=== PATIENT | male | born 1955 | race Caucasian/White ===

== ENCOUNTER 2018-08-15 15:16 | Observation (INO) ==
--- NOTE | 2018-08-15 16:55 | ED ---
HPI General Chief Complaint: Respiratory Symptoms Stated Complaint: sent by doctor Time Seen by Provider: 08/15/18 16:37 Source: patient and RN notes reviewed Mode of arrival: ambulatory Limitations: no limitations History of Present Illness 63-year-old male presents to the emergency department for evaluation of worsening shortness of breath. Patient states he has had shortness of breath for months, but has been progressively worsening. He reports lower extremity edema for 1 week. Patient states he went to [facility] in [facility] on Saturday and had an EKG and chest x-ray done. They did no lab work. He was sent home with prednisone and azithromycin. Patient reports no improvement with medications. He does report history of COPD and is a heavy smoker, 2 packs /day. Patient denies any chest pain. No fevers or chills. Moderate severity. MD Complaint: Reports shortness of breath and cough Onset (ago): month(s) (1) Severity: moderate Consistency/Duration: constant Relieving factors: nothing Exacerbating factors: exertion Known history of: Reports COPD Associated symptoms: Reports cough and wheezing; Denies chest pain, pain with inspiration, fever, lower extremity pain, palpitations, hemoptysis, diaphoresis , nausea/vomiting, syncope, abdominal pain, rash, dizziness and lightheadedness Treatment prior to arrival: Reports bronchodilator Related Data Home Medications Medication Instructions Recorded Confirmed azithromycin 250 mg PO DAILY 08/15/18 08/15/18 budesonide-formoterol [Symbicort] 2 puff INHALATION Q12H 08/15/18 08/15/18 fluoxetine 20 mg PO DAILY 08/15/18 08/15/18 ipratropium-albuterol [Combivent 1 puff INHALATION QID 08/15/18 08/15/18 Respimat] lisinopril 20 mg PO DAILY 08/15/18 08/15/18 meloxicam 7.5 mg PO DAILY 08/15/18 08/15/18 nystatin 1 applic TOPICAL TID 08/15/18 08/15/18 prednisone 50 mg PO BID 08/15/18 08/15/18 Allergies Allergy/AdvReac Type Severity Reaction Status Date / Time acetaminophen Allergy Nasal Verified 08/15/18 16:48 Discharge Sulfa (Sulfonamide Allergy Swelling Verified 08/15/18 16:48 Antibiotics) Review of Systems ROS: all other systems reviewed are negative PMFSH Medical History Medical History Hypertension (Acute) CHF (congestive heart failure) (Acute) COPD (chronic obstructive pulmonary disease) (Acute) Surgical History Surgical History Hx of knee surgery (Acute) Social History Social History Substance History: No History of Abuse Second Hand Smoke Exposure: No Smoking Status: Former smoker Tobacco Type: Cigarettes How Often Do You Have a Drink Containing Alcohol: 4 or more times a week Recent Travel in [facility] within the Last 8 Weeks: No Recent Out of Country Travel within the Last 8 Weeks: No Substance Abuse Detail Marijuana: Substance Use Status: Active Route Used Substance Abuse: By Mouth Immunization History Tetanus Immunization: >5 Years Exam Narrative Exam Narrative: GENERAL: Well-nourished, well-developed male patient, ambulatory. Afebrile. SKIN: Focused skin assessment warm/dry. HEAD: Normocephalic. Atraumatic. EYES: No scleral icterus. No injection or drainage. NECK: Supple, trachea midline. No JVD or lymphadenopathy. CARDIOVASCULAR: Regular rate and rhythm without murmurs, gallops, or rubs. RESPIRATORY: Breath sounds equal bilaterally. No accessory muscle use. Lung sounds with expiratory wheezes throughout. GASTROINTESTINAL: Abdomen soft, non-tender, nondistended. MUSCULOSKELETAL: No cyanosis. Bilateral 2+ lower extremity edema. BACK: Nontender without obvious deformity. No CVA tenderness. Course Initial Documented Vital Signs Temperature 98.7 F 08/15/18 15:28 Pulse Rate 56 L 08/15/18 15:28 Respiratory Rate 20 08/15/18 15:28 Blood Pressure 168/88 H 08/15/18 15:28 Pulse Oximetry 98 08/15/18 15:28 Last Documented Vital Signs Temperature 98.0 F 08/15/18 20:00 Pulse Rate 100 H 08/15/18 20:30 Respiratory Rate 18 08/15/18 20:30 Blood Pressure 147/85 H 08/15/18 20:00 Pulse Oximetry 96 08/15/18 20:00 Medical Decision Making MDM Narrative Medical decision making narrative: 63-year-old male presents to the emergency department for evaluation of shortness of breath, wheezing, known COPD. He reports bilateral lower extremity edema. IV access obtained. EKG, CBC, CMP, CK , troponin, magnesium, BNP, PTT, PT/INR, d-dimer, chest x-ray ordered and pending. Patient has been on azithromycin, prednisone 50 mg daily since Saturday. Patient is given DuoNeb x3. EKG shows bigeminy, HR 105. CBC shows no acute abnormality. CMP shows hyponatremia 129, hyperkalemia 5.3, BUN 21, creatinine 1.45, hyperglycemia 160. CK is 378. Troponin is 0.05. Magnesium is 1.8. BNP is 1387. PTT is 25.7. PT/INR is 11.8/1.2. D-dimer is 0.81. Chest x-ray is negative. CT pulmonary antrum is ordered and shows no pulmonary embolus, moderate severe emphysema, nonspecific upper limits of normal to mildly enlarged mediastinal lymph nodes, coronary artery calcification. Patient is given Lasix 40 mg IV. Hospitalist paged for admission for new onset CHF, COPD exacerbation. Medical Screen Exam Complete: Yes Emergency Medical Condition: Yes Medical Records Medical records reviewed: Yes I reviewed the patient's medical records. Lab Data Result diagrams: 08/15/18 16:57 08/15/18 16:57 Lab Results 08/15/18 08/15/18 08/15/18 Range/Units 16:57 16:57 16:57 WBC 9.0 (4.0-11.0) th/mm3 RBC 3.94 L (4.50-5.90) mil/mm3 Hgb 15.5 (13.0-17.0) gm/dL Hct 43.6 (39.0-51.0) % MCV 110.8 H (80.0-100.0) fL MCH 39.4 H (27.0-34.0) pg MCHC 35.6 (32.0-36.0) % RDW 14.3 (11.6-17.2) % Plt Count 162 (150-450) th/mm3 MPV 9.9 (7.0-11.0) fL Neut % (Auto) 90.5 H (16.0-70.0) % Lymph % (Auto) 5.2 L (9.0-44.0) % [place] % (Auto) 4.2 (0.0-8.0) % Eos % (Auto) 0.0 (0.0-4.0) % Baso % (Auto) 0.1 (0.0-2.0) % Neut # (Auto) 8.2 H (1.8-7.7) th/mm3 Lymph # (Auto) 0.5 L (1.0-4.8) th/mm3 [place] # (Auto) 0.4 (0.0-0.9) th/mm3 Eos # (Auto) 0.0 (0.0-0.4) th/mm3 Baso # (Auto) 0.0 (0.0-0.2) th/mm3 WBC Differential . Differential Comment Auto diff final PT 11.8 H (9.8-11.6) sec INR 1.2 Ratio APTT 25.7 (23.4-31.7) sec D-Dimer Quant (PE/DVT) 0.81 H (0.00-0.50) mg/L FEU Sodium 129 L (136-145) meq/L Potassium 5.3 H (3.5-5.1) meq/L Chloride 94 L (98-107) meq/L Carbon Dioxide 24.7 (21.0-32.0) meq/L Anion Gap 10 (5-15) meq/L BUN 21 H (7-18) mg/dL Creatinine 1.45 H (0.60-1.30) mg/dL Estimated GFR 49 L (>89) mL/min Random Glucose 160 H (74-106) mg/dL Calcium 8.1 L (8.5-10.1) mg/dL Magnesium (1.5-2.5) mg/dL Total Bilirubin 0.5 (0.2-1.0) mg/dL AST 54 H (15-37) U/L ALT 61 (12-78) U/L Alkaline Phosphatase 71 (45-117) U/L Total Creatine Kinase 378 H (39-308) U/L CK-MB (CK-2) 14.0 H (0.5-3.6) ng/mL CK-MB (CK-2) % 3.7 (0.0-4.0) % Troponin I 0.05 (0.02-0.05) ng/mL B-Natriuretic Peptide (0-100) pg/mL Total Protein 7.2 (6.4-8.2) g/dL Albumin 3.7 (3.4-5.0) g/dL 08/15/18 08/15/18 08/15/18 Range/Units 16:57 16:57 16:57 WBC (4.0-11.0) th/mm3 RBC (4.50-5.90) mil/mm3 Hgb (13.0-17.0) gm/dL Hct (39.0-51.0) % MCV (80.0-100.0) fL MCH (27.0-34.0) pg MCHC (32.0-36.0) % RDW (11.6-17.2) % Plt Count (150-450) th/mm3 MPV (7.0-11.0) fL Neut % (Auto) (16.0-70.0) % Lymph % (Auto) (9.0-44.0) % [place] % (Auto) (0.0-8.0) % Eos % (Auto) (0.0-4.0) % Baso % (Auto) (0.0-2.0) % Neut # (Auto) (1.8-7.7) th/mm3 Lymph # (Auto) (1.0-4.8) th/mm3 [place] # (Auto) (0.0-0.9) th/mm3 Eos # (Auto) (0.0-0.4) th/mm3 Baso # (Auto) (0.0-0.2) th/mm3 WBC Differential Differential Comment PT Cancelled (9.8-11.6) sec INR Cancelled Ratio APTT Cancelled (23.4-31.7) sec D-Dimer Quant (PE/DVT) (0.00-0.50) mg/L FEU Sodium (136-145) meq/L Potassium (3.5-5.1) meq/L Chloride (98-107) meq/L Carbon Dioxide (21.0-32.0) meq/L Anion Gap (5-15) meq/L BUN (7-18) mg/dL Creatinine (0.60-1.30) mg/dL Estimated GFR (>89) mL/min Random Glucose (74-106) mg/dL Calcium (8.5-10.1) mg/dL Magnesium 1.8 (1.5-2.5) mg/dL Total Bilirubin (0.2-1.0) mg/dL AST (15-37) U/L ALT (12-78) U/L Alkaline Phosphatase (45-117) U/L Total Creatine Kinase (39-308) U/L CK-MB (CK-2) (0.5-3.6) ng/mL CK-MB (CK-2) % (0.0-4.0) % Troponin I (0.02-0.05) ng/mL B-Natriuretic Peptide 1387 H (0-100) pg/mL Total Protein (6.4-8.2) g/dL Albumin (3.4-5.0) g/dL Imaging Data Radiologist's impression: Chest X-Ray 08/15/18 16:50 CONCLUSION: Negative examination. Chest CTA 08/15/18 17:29 CONCLUSION: 1. No pulmonary embolus or other acute cardiopulmonary disease demonstrated. 2. Moderate severity emphysema. 3. Nonspecific upper limits of normal to mildly enlarged mediastinal lymph nodes. 4. Coronary artery calcification. Discharge Plan Discharge Disposition Patient Disposition: ED Admit(ED Internal Use Only) Discharge Order Discharge Orders: ED Use Only Admit Order (Routine); Ordered 08/15/18 Ordered By: Merle Garsia Discharge Details Diagnosis: CHF (congestive heart failure), COPD (chronic obstructive pulmonary disease) Physicians Team ED Provider: Jennifer Hoover ED Midlevel Provider: Merle Garsia Primary Care Provider: UNKNOWN, Attending Provider: Lamar Suresh Discharge Interventions Interventions: ED Discharge Assessment Last Done: 08/15/18 20:45 Vital Signs Last Done: 08/15/18 19:18 Status ED Status: Admitted Observation Patient
[2018-08-15 17:13] LABS: Baso % (Auto) 0.1 % (0.0-2.0); Hematocrit 43.6 % (39.0-51.0); Hemoglobin 15.5 gm/dL (13.0-17.0); Lymph # (Auto) 0.5 th/mm3 (1.0-4.8); Lymph % (Auto) 5.2 % (9.0-44.0); Mean Corpuscular HGB Conc 35.6 % (32.0-36.0); Mean Corpuscular Hemoglobin 39.4 pg (27.0-34.0); Mean Corpuscular Volume 110.8 fL (80.0-100.0); Mean Platelet Volume 9.9 fL (7.0-11.0); Mono # (Auto) 0.4 th/mm3 (0.0-0.9); Mono % (Auto) 4.2 % (0.0-8.0); Neut # (Auto) 8.2 th/mm3 (1.8-7.7); Neut % (Auto) 90.5 % (16.0-70.0); Platelet Count 162 th/mm3 (150-450); Red Blood Count 3.94 mil/mm3 (4.50-5.90); Red Cell Distribution Width 14.3 % (11.6-17.2)
[2018-08-15 17:24] LABS: Activated Partial Thrombo Time 25.7 sec (23.4-31.7); INR 1.2 Ratio; Prothrombin Time 11.8 sec (9.8-11.6)
[2018-08-15 17:25] LABS: D-Dimer 0.81 mg/L FEU (0.00-0.50)
[2018-08-15 17:38] LABS: Alanine Aminotransferase 61 U/L (12-78); Albumin 3.7 g/dL (3.4-5.0); Anion Gap 10 meq/L (5-15); Aspartate Aminotransferase 54 U/L (15-37); Blood Urea Nitrogen 21 mg/dL (7-18); Calcium 8.1 mg/dL (8.5-10.1); Carbon Dioxide 24.7 meq/L (21.0-32.0); Chloride 94 meq/L (98-107); Glomerular Filtration Rate 49 mL/min (>89); Glucose,Random 160 mg/dL (74-106); Potassium 5.3 meq/L (3.5-5.1); Sodium 129 meq/L (136-145)
[2018-08-15 17:39] LABS: Alkaline Phosphatase 71 U/L (45-117); Creatine Kinase 378 U/L (39-308); Total Protein 7.2 g/dL (6.4-8.2); Troponin I 0.05 ng/mL (0.02-0.05)
--- NOTE | 2018-08-15 17:44 | XR ---
EXAM DATE: 08/15/2018 5:41 PM EST AGE/SEX: 63 years / Male INDICATIONS: Chest pain and short of breath. CLINICAL DATA: This is the patient's initial encounter. Patient reports that signs and symptoms have been present for 1 month and indicates a pain score of 4/10. MEDICAL/SURGICAL HISTORY: Chronic obstructive pulmonary disease. Hypertension. . COMPARISON: No prior exams available for comparison. FINDINGS: A single AP view of the chest demonstrates the lungs to be symmetrically aerated without evidence of mass, infiltrate or effusion. The cardiomediastinal contours are unremarkable. Osseous structures a re intact. CONCLUSION: Negative examination. Electronically signed by: Yony Leslie MD 08/15/2018 5:43 PM EST
[2018-08-15 17:52] LABS: CKMB Percent 3.7 % (0.0-4.0)
--- NOTE | 2018-08-15 18:45 | CT ---
EXAM DATE: 08/15/2018 6:32 PM EST AGE/SEX: 63 years / Male INDICATIONS: Shortness of breath for one month, lower leg swelling. CLINICAL DATA: This is the patient's initial encounter. Patient reports that signs and symptoms have been present for 1 month and indicates a pain score of 0/10. MEDICAL/SURGICAL HISTORY: Congestive heart failure. Chronic obstructive pulmonary disease. Hypert ension. None. RADIATION DOSE: 20.06 CTDI (mGy) COMPARISON: No prior exams available for comparison. TECHNIQUE: Volumetric scanning was performed using a multi-row detector CT scanner during bolus infu armida of 73 ml Omnipaque 350 (iohexol) nonionic water-soluble contrast as a single exam dose. The jonathan a was post processed with a variety of visualization algorithms including full volume maximum intensi ty projection and sliding thin slab reformation. Using automated exposure control and adjustment of the mA and/or kV according to patient size, radiation dose was kept as low as reasonably achievable t o obtain optimal diagnostic quality images. DICOM format image data is available electronically for review and comparison. FINDINGS: There is no pulmonary embolus. No infiltrate, effusion or pneumothorax. Patient has moderate severity emphysema. There are AP window and paratracheal mediastinal lymph nodes that measure up to 14 mm in greatest kristofer rt axis dimension. Heart size within normal limits. Coronary artery calcification noted. CONCLUSION: 1. No pulmonary embolus or other acute cardiopulmonary disease demonstrated. 2. Moderate severity emphysema. 3. Nonspecific upper limits of normal to mildly enlarged mediastinal lymph nodes. 4. Coronary artery calcification. Electronically signed by: Michael Vance MD 08/15/2018 6:44 PM EST
[2018-08-15] MEDS ORDERED: Bisacodyl 10 MG Supp RECTAL PRN (19:34)
[2018-08-15] MEDS ORDERED: Haloperidol Inj 5 MG/ML Ampul IV.PUSH PRN (19:35)
[2018-08-15] MEDS: MethylPREDNISolone Sod Succinate Inj 40 MG/ML Vial IV.PUSH SCH (20:40)
[2018-08-15] MEDS: Senna/Docusate Sodium 8.6/50 MG Tablet PO SCH (21:17)
[2018-08-15] MEDS: guaiFENesin 600 MG ER Tablet PO SCH (21:17)
--- NOTE | 2018-08-15 21:18 | P.HPIM ---
History of Present Illness Primary Care Physician: UNKNOWN History of Present Illness: This is a 63-year-old male with a PMH of HTN, COPD, Alcohol Abuse and Tobacco Abuse who was referred to the ER by his PCP for evaluation of ongoing SOB and lower extremity edema. Pt reports SOB x1 month, however progressively worse over the last 2-3 days, now w/ exertion, unable to perform minimal activity. Denies chest pain, fever or chills. Seen at [place] 2 days ago and was d/ c'd on Prednisone/Z-pack, reports no improvement. Has been using MDI, now c/o thrush for which he's on Nystatin. On arrival, BP 168/88, HR 56, O2 sat 98% on RA, Afebrile. CBC unremarkable except for MCV 110. INR 1.2. D-dimer 0.81. K + 5.3. Creatinine 1.45, no previous labs for comparison. CPK 378. BNP 1387. CXR negative. CTA Chest negative for PE, moderate severity emphysema, coronary artery calcification, mildly enlarged mediastinal lymph nodes. S/p Lasix 40mg IV and DuoNeb w/ some improvement. - Diagnosis (1) COPD (chronic obstructive pulmonary disease) (2) CHF (congestive heart failure) (3) CHUY (acute kidney injury) (4) Alcohol abuse (5) Tobacco abuse Review of Systems PAST FAMILY HISTORY: Reviewed. No h/o DM or CAD All other systems reviewed negative except as stated in HPI REPLACED BY [facility] - History History Provided By: Patient - Medical History Medical History: Medical History (Last Updated 08/15/18 @ 16:46 by Tania Leahy RN) Hypertension CHF (congestive heart failure) COPD (chronic obstructive pulmonary disease) - Surgical History Surgical History: Surgical History (Last Updated 08/15/18 @ 16:49 by Tania Leahy RN) Hx of knee surgery - Tobacco History Second Hand Smoke Exposure: No Tobacco Use In Past 30 Days: No Smoking Status: Former smoker Tobacco Type: Cigarettes - Alcohol History How Often Do You Have a Drink Containing Alcohol: 4 or more times a week - Substance Use History Substance History: No History of Abuse - Substance Use Type Marijuana Status: Active Route Used: By Mouth - Travel History Recent Travel in the [place] Within the Last 8 Weeks: No Recent Travel Out of the Country Within the Last 8 Weeks: No - Immunization History Tetanus Immunization: >5 Years Hx Influenza Vaccine This Season: No Medications and Allergies Active Medications: Active Medications Al Hydroxide/Mg Hydroxide (Milk Of Magnesia Liq) 30 ml PO Q12H PRN PRN Reason: Mild Constipation Albuterol (Duoneb Neb (Prn)) 1 ampul NEB Q2HR NEB PRN PRN Reason: SOB/WHEEZING Albuterol (Duoneb Neb (Sachin)) 1 ampul NEB Q4HR WHILE AWAKE NEB [facility] Last Admin: 08/15/18 20:30 Dose: 1 ampul Bisacodyl (Dulcolax Supp) 10 mg RECTAL DAILY PRN PRN Reason: SEVERE CONSITIPATION Budesonide/Formoterol Fumarate (Symbicort 160/4.5 Mcg Inh) 2 puff INH BID [facility] Flumazenil (Romazecon Inj) 0.2 mg IV.PUSH Q1M PRN PRN Reason: OVERSEDATION Folic Acid (Folic Acid) 1 mg PO DAILY [facility] Stop: 08/21/18 08:59 Furosemide (Lasix Inj) 20 mg IV.PUSH BID@0900,1800 [facility] Guaifenesin (Mucinex Er) 600 mg PO BID [facility] Last Admin: 08/15/18 21:17 Dose: 600 mg Haloperidol Lactate (Haldol Inj) 1 mg IV.PUSH Q15M PRN PRN Reason: for severe agitation Heparin Sodium (Porcine) (Heparin Inj) 5,000 units SQ Q12H [facility] Lactulose (Lactulose Liq) 30 ml PO DAILY PRN PRN Reason: SEVERE CONSITIPATION Lorazepam (Ativan) 1 mg PO Q4H PRN PRN Reason: for CIWA 8-10 Lorazepam (Ativan) 2 mg PO Q2H PRN PRN Reason: for CIWA 11-14 Lorazepam (Ativan Inj) 2 mg IV.PUSH Q2H PRN PRN Reason: for CIWA 11-14 Lorazepam (Ativan Inj) 2 mg IV.PUSH Q1H PRN PRN Reason: for CIWA 15-20 Lorazepam (Ativan Inj) 2 mg IV.PUSH Q15M PRN PRN Reason: for CIWA > 20 Lorazepam (Ativan Inj) 1 mg IV.PUSH Q4H PRN PRN Reason: for CIWA 8-10 Methylprednisolone Sodium Succinate (Solumedrol Inj) 40 mg IV.PUSH Q6H [facility] Last Admin: 08/15/18 20:40 Dose: 40 mg Multivitamins/Minerals (Theragran-M) 1 tab PO DAILY [facility] Stop: 08/21/18 08:59 Nicotine (Habitrol 21 Mg Patch.24 Hr) 1 patch T-DERMAL DAILY [facility] Last Admin: 08/15/18 21:17 Dose: 1 patch Ondansetron HCl (Zofran Inj) 4 mg IV.PUSH Q6H PRN PRN Reason: NAUSEA OR VOMITING Patch Removal (Remove Old Patch) 1 each T-DERMAL DAILY [facility] Last Admin: 08/15/18 21:17 Dose: 1 each Senna/Docusate Sodium (Kelly-Colace) 1 tab PO BID [facility] Last Admin: 08/15/18 21:17 Dose: Not Given Sennosides (Senokot) 17.2 mg PO Q12H PRN PRN Reason: Moderate Constipation Sodium Chloride (Ns Flush) 2 ml IV.FLUSH BID [facility] Last Admin: 08/15/18 21:17 Dose: 2 ml Sodium Chloride (Ns Flush) 2 ml IV.FLUSH UNSCH PRN PRN Reason: FLUSH AFTER USING IV ACCESS Thiamine HCl (Vitamin B1) 100 mg PO DAILY [facility] Allergies Allergy/AdvReac Type Severity Reaction Status Date / Time acetaminophen Allergy Nasal Verified 08/15/18 16:48 Discharge Sulfa (Sulfonamide Allergy Swelling Verified 08/15/18 16:48 Antibiotics) Home Medications Medication Instructions Recorded Confirmed Type azithromycin 250 mg PO DAILY 08/15/18 08/15/18 History budesonide-formoterol [Symbicort] 2 puff INHALATION Q12H 08/15/18 08/15/18 History fluoxetine 20 mg PO DAILY 08/15/18 08/15/18 History ipratropium-albuterol [Combivent 1 puff INHALATION QID 08/15/18 08/15/18 History Respimat] lisinopril 20 mg PO DAILY 08/15/18 08/15/18 History meloxicam 7.5 mg PO DAILY 08/15/18 08/15/18 History nystatin 1 applic TOPICAL TID 08/15/18 08/15/18 History prednisone 50 mg PO BID 08/15/18 08/15/18 History Exam Vital signs: Vital Signs 08/15/18 15:28 12/07/18 16:52 08/15/18 16:53 Temperature 98.7 F Pulse Rate 56 L 95 H Respiratory Rate 20 18 Blood Pressure 168/88 H 154/81 H Pulse Oximetry 98 97 97 08/15/18 17:09 08/15/18 17:22 08/15/18 19:18 Temperature Pulse Rate 105 H 105 H 100 H Respiratory Rate 18 18 Blood Pressure 146/76 H Pulse Oximetry 98 08/15/18 20:00 08/15/18 20:30 Temperature 98.0 F Pulse Rate 98 H 100 H Respiratory Rate 20 18 Blood Pressure 147/85 H Pulse Oximetry 96 Intake & Output 08/15/18 08/15/18 08/16/18 06:59 18:59 06:59 Weight 92.533 kg Narrative: PE: GENERAL: Pleasant middle-aged white male mildly anxious, +dyspnea w/ speech. Multiple family members at bedside. SKIN: Focused skin assessment warm and dry. Facial erythema HEENT: PERRLA, EOMI. No scleral icterus or conjunctival pallor. No lid lag or facial droop. +thrush. CARDIOVASCULAR: Regular rate and rhythm. No obvious murmurs to auscultation. No chest tenderness to palpation. RESPIRATORY: No obvious rhonchi. +wheezing. Clear to auscultation. Breath sounds equal bilaterally. GASTROINTESTINAL: Abdomen soft, non-tender, nondistended. BS normal. MUSCULOSKELETAL: Extremities without clubbing, cyanosis. 2+ edema. No obvious deformities. NEUROLOGICAL: Awake, alert and oriented x4. No focal neurologic deficits. Moving both upper and lower extremities spontaneously. PSYCHIATRIC: Appropriate mood and affect. Insight and judgment normal. Results - Labs CBC & Chem 7: 08/15/18 16:57 08/15/18 16:57 Labs: Short CBC 08/15/18 Range/Units 16:57 WBC 9.0 (4.0-11.0) th/mm3 Hgb 15.5 (13.0-17.0) gm/dL Hct 43.6 (39.0-51.0) % Plt Count 162 (150-450) th/mm3 [facility] 08/15/18 16:57 Sodium 129 L Potassium 5.3 H Chloride 94 L Carbon Dioxide 24.7 BUN 21 H Creatinine 1.45 H Calcium 8.1 L Cardiac Enzymes 08/15/18 Range/Units 16:57 Total Creatine Kinase 378 H (39-308) U/L CK-MB (CK-2) 14.0 H (0.5-3.6) ng/mL Troponin I 0.05 (0.02-0.05) ng/mL Liver Function 08/15/18 Range/Units 16:57 Total Bilirubin 0.5 (0.2-1.0) mg/dL AST 54 H (15-37) U/L ALT 61 (12-78) U/L Alkaline Phosphatase 71 (45-117) U/L Albumin 3.7 (3.4-5.0) g/dL - Imaging Impressions Chest X-Ray 08/15/18 16:50 CONCLUSION: Negative examination. Chest CTA 08/15/18 17:29 CONCLUSION: 1. No pulmonary embolus or other acute cardiopulmonary disease demonstrated. 2. Moderate severity emphysema. 3. Nonspecific upper limits of normal to mildly enlarged mediastinal lymph nodes. 4. Coronary artery calcification. Caprini VTE Risk Assessment Caprini VTE Risk Assessment: No/Low Risk (score <= 1) Caprini Risk Assessment Model: Point Value = 1 Point Value = 2 Point Value = 3 Point Value = 5 Age 41-60 Minor surgery BMI > 25 kg/m2 Swollen legs Varicose veins or History of unexplained or recurrent spontaneous Oral contraceptives or hormone replacement Sepsis (< 1 month) Serious lung disease, including pneumonia (< 1 month) Abnormal pulmonary function Acute myocardial infarction Congestive heart failure (< 1 month) History of inflammatory bowel disease Medical patient at bed rest Age 61-74 Arthroscopic surgery Major open surgery (> 45 min) Laparoscopic surgery (> 45 min) Malignancy Confined to bed (> 72 hours) Immobilizing plaster cast Central venous access Age >= 75 History of VTE Family history of VTE Factor V Leiden Prothrombin [id number] Lupus anticoagulant Anticardiolipin antibodies Elevated serum homocysteine Heparin-induced thrombocytopenia Other congenital or acquired thrombophilia Stroke (< 1 month) Elective arthroplasty Hip, pelvis, or leg fracture Acute spinal cord injury (< 1 month) Prophylaxis Regimen: Total Risk Factor Score Risk Level Prophylaxis Regimen 0-1 Low Early ambulation 2 Moderate Order ONE of the following: *Sequential Compression Device (SCD) *Heparin 5000 units SQ BID 3-4 Higher Order ONE of the following medications: *Heparin 5000 units SQ TID *Enoxaparin/Lovenox 40 mg SQ daily (WT < 150 kg, CrCl > 30 mL/min) *Enoxaparin/Lovenox 30 mg SQ daily (WT < 150 kg, CrCl > 10-29 mL/min) *Enoxaparin/Lovenox 30 mg SQ BID (WT < 150 kg, CrCl > 30 mL/min) AND/OR *Sequential Compression Device (SCD) 5 or more Highest Order ONE of the following medications: *Heparin 5000 units SQ TID (Preferred with Epidurals) *Enoxaparin/Lovenox 40 mg SQ daily (WT < 150 kg, CrCl > 30 mL/min) *Enoxaparin/Lovenox 30 mg SQ daily (WT < 150 kg, CrCl > 10-29 mL/min) *Enoxaparin/Lovenox 30 mg SQ BID (WT < 150 kg, CrCl > 30 mL/min) AND *Sequential Compression Device (SCD) Assessment and Plan - Assessment (1) COPD (chronic obstructive pulmonary disease) Code(s): J44.9 - Chronic obstructive pulmonary disease, unspecified Status: Acute (2) CHF (congestive heart failure) Code(s): I50.9 - Heart failure, unspecified Status: Acute (3) HCUY (acute kidney injury) Code(s): N17.9 - Acute kidney failure, unspecified Status: Acute (4) Alcohol abuse Code(s): F10.10 - Alcohol abuse, uncomplicated Status: Acute (5) Tobacco abuse Code(s): Z72.0 - Tobacco use Status: Acute - Plan A/P: 1. COPD: Chronic Respiratory Failure w/ Acute Exacerbation, +wheezing on exam , CXR w/ no acute findings, CTA Chest w/ no PE, +emphysema, Solu-Medrol, DuoNeb , Symbicort, Mucinex. Nystatin for thrush. 2. CHF: New Onset. Acute. progressive lower extremity edema, BNP 1387, CXR/ CTA w/ no effusion, +significant dyspnea w/ speech/exertion. S/p Lasix 40mg IV in ER, continue w/ diuresis-caution w/ renal function, monitor I/O, telemetry, check Echo to eval for extent of cardiomyopathy. Initial trop 0.05, +coronary calcifications seen on CTA Chest, +multiple cardiac risk factors, check serial cardiac enzymes to eval for underlying ischemia. ASA, Statin. Hold BREANNE for now in light of renal insufficiency-await Echo results. 3. CHUY: Creatinine 1.45, no previous labs for comparison, presumably new, likely due to increased respiratory losses from severe dyspnea, monitor I/O, check U/a, may need gentle hydration despite acute CHF if renal function worsens , will monitor. 4. Alcohol Abuse: drinks 6-8 beers/day, possibly more, CIWA, Seizure Precautions, MVT/Thiamine/Folate replacement. 5. Tobacco Abuse: Pt counselled. Requesting NicoDerm patch. 6. DVT Prophylaxis: Heparin sq 7. Social work for d/c planning as needed. 8. Case discussed w/ ER physician at length, labs/records/imaging reviewed by me. H&P: Quality - VTE Deep Vein Thrombosis/Pulmonary Embolism Present on Admission: No
[2018-08-15] MEDS: Budesonide-Formoterol 160/4.5 MCG 6 GM Inhaler INH SCH (21:59)
[2018-08-15] MEDS ORDERED: Influenza (Quadrivalent) Vaccine 0.5 ML Syringe IM ONE (22:00)
[2018-08-16] MEDS: MethylPREDNISolone Sod Succinate Inj 40 MG/ML Vial IV.PUSH SCH ×4 (01:03→22:16)
[2018-08-16 05:21] LABS: Baso % (Auto) 0.4 % (0.0-2.0); Hematocrit 42.7 % (39.0-51.0); Hemoglobin 14.9 gm/dL (13.0-17.0); Lymph # (Auto) 0.4 th/mm3 (1.0-4.8); Lymph % (Auto) 5.1 % (9.0-44.0); Mean Corpuscular HGB Conc 34.9 % (32.0-36.0); Mean Corpuscular Hemoglobin 38.2 pg (27.0-34.0); Mean Corpuscular Volume 109.5 fL (80.0-100.0); Mean Platelet Volume 10.2 fL (7.0-11.0); Mono # (Auto) 0.2 th/mm3 (0.0-0.9); Mono % (Auto) 3.2 % (0.0-8.0); Neut # (Auto) 7.1 th/mm3 (1.8-7.7); Neut % (Auto) 91.3 % (16.0-70.0); Platelet Count 144 th/mm3 (150-450); Red Cell Distribution Width 14.3 % (11.6-17.2); White Blood Count 7.8 th/mm3 (4.0-11.0)
[2018-08-16 05:33] LABS: Alanine Aminotransferase 56 U/L (12-78); Albumin 3.5 g/dL (3.4-5.0); Anion Gap 7 meq/L (5-15); Aspartate Aminotransferase 45 U/L (15-37); Blood Urea Nitrogen 26 mg/dL (7-18); Calcium 8.4 mg/dL (8.5-10.1); Carbon Dioxide 28.2 meq/L (21.0-32.0); Chloride 95 meq/L (98-107); Glomerular Filtration Rate 49 mL/min (>89); Glucose,Random 160 mg/dL (74-106); Potassium 4.8 meq/L (3.5-5.1); Sodium 130 meq/L (136-145)
[2018-08-16 05:36] LABS: Alkaline Phosphatase 63 U/L (45-117); Total Protein 6.6 g/dL (6.4-8.2)
[2018-08-16] MEDS: Multivitamin/Minerals Therapeutic Tablet PO SCH (09:13)
[2018-08-16] MEDS: FLUoxetine 20 MG Capsule PO SCH (09:13)
[2018-08-16] MEDS: guaiFENesin 600 MG ER Tablet PO SCH ×2 (09:13→22:17)
[2018-08-16] MEDS: Folic Acid 1 MG Tablet PO SCH (09:13)
[2018-08-16] MEDS: Heparin - SQ 10,000 UNITS/ML Vial SQ SCH ×2 (09:14→22:17)
[2018-08-16] MEDS: Budesonide-Formoterol 160/4.5 MCG 6 GM Inhaler INH SCH ×2 (09:15→22:17)
[2018-08-16] MEDS: Senna/Docusate Sodium 8.6/50 MG Tablet PO SCH ×2 (09:16→22:17)
[2018-08-16] MEDS: Lisinopril 20 MG Tablet PO SCH (09:28)
--- NOTE | 2018-08-16 15:33 | ECHRPT ---
Indication: CARDIOMYOPATHY CONCLUSIONS There are findings consistent with dilated cardiomyopathy. There is global left ventricular dysfunction. The left ventricular systolic function is severely reduced with an estimated ejection fraction less than 20%. The right ventricular systoilc function is moderately decreased. The left atrial size is uxrw-ho-eezxyicnni dilated. The right atrial size is moderately dilated. Moderate mitral annular calcification. Zaqcxbji-ab-qpbbkj mitral valve regurgitation. There is moderate to severe tricuspid valve regurgitation. The estimated pulmonary arterial pressure is 54.4 mmHg. BP: / HR: Rhythm: Sinus MEASUREMENTS (Male / Female) Normal Values Technical Quality:Technically difficult study 2D ECHO LV Diastolic Diameter PLAX 5.4 cm 4.2 - 5.9 / 3.9 - 5.3 cm LV Systolic Diameter PLAX 5.1 cm IVS Diastolic Thickness 1.0 cm 0.6 - 1.0 / 0.6 - 0.9 cm LVPW Diastolic Thickness 1.0 cm 0.6 - 1.0 / 0.6 - 0.9 cm LV Relative Wall Thickness 0.4 RV Internal Dim ED PLAX 4.2 cm LVOT Diameter 2.1 cm Aortic Root Diameter 3.0 cm LA Systolic Diameter LX 4.4 cm 3.0 - 4.0 / 2.7 - 3.8 cm LV Ejection Fraction MOD BP 20.4 % >= 55 % LV Ejection Fraction MOD 4C 23.7 % LV Ejection Fraction 4C AL 22.9 % LV Ejection Fraction MOD 2C 17.3 % LV Ejection Fraction 2C AL 16.5 % LA Volume Index 59.1 cm/m 16 - 28 cm/m M-MODE AV Cusp Separation MM 1.7 cm DOPPLER AV Peak Velocity 137.0 cm/s AV Peak Gradient 7.5 mmHg AV Mean Gradient 4.0 mmHg AV Velocity Time Integral 23.0 cm LVOT Peak Velocity 67.7 cm/s LVOT Peak Gradient 1.8 mmHg LVOT Velocity Time Integral 10.5 cm AV Area Cont Eq vti 1.6 cm AV Area Cont Eq pk 1.7 cm Mitral E Point Velocity 126.0 cm/s Mitral A Point Velocity 63.2 cm/s Mitral E to A Ratio 2.0 LV E' Lateral Velocity 9.2 cm/s Mitral E to LV E' Lateral Ratio 13.8 LV E' Septal Velocity 6.7 cm/s Mitral E to LV E' Septal Ratio 18.7 TR Peak Velocity 333.0 cm/s TR Peak Gradient 44.4 mmHg Right Atrial Pressure 10.0 mmHg Pulmonary Artery Systolic Pressu 54.4 mmHg Right Ventricular Systolic Press 54.4 mmHg PV Peak Velocity 51.9 cm/s PV Peak Gradient 1.1 mmHg FINDINGS LEFT VENTRICLE There are findings consistent with dilated cardiomyopathy. There is global left ventricular dysfunction. The left ventricular systolic function is severely reduced with an estimated ejection fraction less than 20%. RIGHT VENTRICLE The right ventricular systoilc function is moderately decreased. LEFT ATRIUM The left atrial size is vssf-qa-puomknhsfe dilated. RIGHT ATRIUM The right atrial size is moderately dilated. ATRIAL SEPTUM No atrial level shunt is demonstrated by color flow Doppler interrogation. AORTA The aortic root and proximal ascending aorta are normal in size on limited imaging. MITRAL VALVE Moderate mitral annular calcification. Jtggqhmp-fz-mnbtap mitral valve regurgitation. AORTIC VALVE Trileaflet aortic valve. No aortic valve stenosis or regurgitation. TRICUSPID VALVE There is moderate to severe tricuspid valve regurgitation. The estimated pulmonary arterial pressure is 54.4 mmHg. PULMONARY VALVE No pulmonary valve regurgitation or stenosis. VESSELS The inferior vena cava is normal in size. PERICARDIUM No pericardial effusion. Yony Rodrigez MD, FACC (Electronically Signed) Final Date:16 August 2018 15:32
--- NOTE | 2018-08-16 17:56 | P.PNIM ---
Subjective Interval history: Patient is seen sitting up in room. He tells me that he feels significantly better and that he is breathing much easier. He denies any cardiac history other than hypertension. He has never been told he has high cholesterol or heart failure. He tells me that he is currently trying to stop smoking and has cut down from 40 cigarettes/day to about 6 and plans to stop altogether. Not currently having any chest pain. He is able to walk around the unit without getting short of breath. No nausea vomiting or diarrhea. Physical Exam Vital signs: Last Vital Signs Temp 96.1 F L 08/16/18 15:20 Pulse 101 H 08/16/18 15:20 Resp 20 08/16/18 15:20 BP 129/66 08/16/18 15:20 Pulse Ox 93 L 08/16/18 15:20 Intake & Output 08/14/18 08/15/18 08/16/18 08/17/18 06:59 06:59 06:59 06:59 Intake Total 1854 / 1854 Output Total 1850 / 1850 1450 / 1450 Balance -1850 / -1850 404 / 404 Weight 89.5 kg Narrative: GENERAL: Well-developed, well-nourished male in no acute distress. SKIN: Focused skin assessment warm and dry. Facial erythema HEENT: PERRLA, EOMI. No scleral icterus or conjunctival pallor. No lid lag or facial droop. +thrush. CARDIOVASCULAR: Regular rate and rhythm. No obvious murmurs to auscultation. No chest tenderness to palpation. RESPIRATORY: No obvious rhonchi. + Slight wheezing. Breath sounds equal bilaterally. GASTROINTESTINAL: Abdomen soft, non-tender, nondistended. BS normal. MUSCULOSKELETAL: Extremities without clubbing, cyanosis. no edema. No obvious deformities. NEUROLOGICAL: Awake, alert and oriented x4. No focal neurologic deficits. Moving both upper and lower extremities spontaneously. PSYCHIATRIC: Appropriate mood and affect. Insight and judgment normal. Results Labs CBC & Chem 7: 08/16/18 04:45 08/16/18 04:45 Imaging Imaging: Impressions Chest CTA 08/15/18 17:29 CONCLUSION: 1. No pulmonary embolus or other acute cardiopulmonary disease demonstrated. 2. Moderate severity emphysema. 3. Nonspecific upper limits of normal to mildly enlarged mediastinal lymph nodes. 4. Coronary artery calcification. Assessment and Plan (1) COPD (chronic obstructive pulmonary disease): Code(s): J44.9 - Chronic obstructive pulmonary disease, unspecified Status: Acute (2) CHF (congestive heart failure): Code(s): I50.9 - Heart failure, unspecified Status: Acute (3) CHUY (acute kidney injury): Code(s): N17.9 - Acute kidney failure, unspecified Status: Acute (4) Alcohol abuse: Code(s): F10.10 - Alcohol abuse, uncomplicated Status: Acute (5) Tobacco abuse: Code(s): Z72.0 - Tobacco use Status: Acute Plan Patient is a 63-year-old male past medical history of COPD who presents to the emergency room due to worsening shortness of breath and leg swelling. Shortness of breath has been for +1-month and lower extremity edema for +1-week. He went to [facility] next morning on Saturday where EKG and chest x-ray done but no lab work. He was discharged with prednisone and azithromycin. He had no improvement on these medications so he came to [place]. COPD: Chronic Respiratory Failure w/ Acute Exacerbation, +wheezing on exam, CXR w/ no acute findings, CTA Chest w/ no PE, +emphysema -Solu-Medrol, DuoNeb, Symbicort, Mucinex -Nystatin S&S for thrush CHF: New Onset. Acute. progressive lower extremity edema, BNP 1387, CXR/CTA w / no effusion, +significant dyspnea w/ speech/exertion. -S/p Lasix 40mg IV in ER, continue w/ diuresis-caution w/ renal function, -Monitor I/O, telemetry -Echo indicated EF <20%. Initial trop 0.05, repeat 0.03 - Add ASA, Statin and Coreg -Consult to cardiology; appreciate assistance Hypertension: chronic -Continue home lisinopril, monitor renal function and stop if GFR less than 30 CHUY: Creatinine 1.45, no previous labs for comparison, presumably new, likely due to increased respiratory losses from severe dyspnea -monitor I/O, may need gentle hydration despite acute CHF if renal function worsens, will monitor. Alcohol Abuse: drinks 6-8 beers/day -CIWA, Seizure Precautions, MVT/Thiamine/Folate replacement. Hyponatremia: -Likely chronic due to EtOH abuse -Monitor and supplement as indicated Tobacco Abuse: -Pt counselled. Requesting NicoDerm patch. DVT Prophylaxis: Heparin sq Discharge planning: Likely home. [facility] Note: Quality VTE Deep Vein Thrombosis/Pulmonary Embolism Present on Admission: No _ (1) CHF (congestive heart failure) Qualifiers: Heart failure chronicity: Heart failure type: (2) COPD (chronic obstructive pulmonary disease) Qualifiers: COPD type: Chronic bronchitis type: Emphysema type:
[2018-08-16] MEDS: Nystatin/Diphenhydramine/Lidocaine Mouthwash (Adult) 120 ML Botttle SWISH-SWAL SCH ×2 (18:30→22:17)
--- NOTE | 2018-08-16 21:17 | ECG ---
Date Performed: 08/15/2018 Time Performed: 17:06:56 PTAGE: 63 years EKG: SINUS TACHYCARDIA WITH FREQUENT VENTRICULAR PREMATURE COMPLEXES IN A BIGEMINAL PATTERN LEFT ATRIAL ENLARGEMENT ABNORMAL RHYTHM ECG NO PREVIOUS TRACING DOCTOR: John Chacon Interpretating Date/Time 08/16/2018 21:15:53
[2018-08-16] MEDS: LORazepam 1 MG Tablet PO PRN (22:18)
[2018-08-17] MEDS: MethylPREDNISolone Sod Succinate Inj 40 MG/ML Vial IV.PUSH SCH ×4 (03:31→21:26)
[2018-08-17] MEDS: Folic Acid 1 MG Tablet PO SCH (08:59)
[2018-08-17] MEDS: FLUoxetine 20 MG Capsule PO SCH (08:59)
[2018-08-17] MEDS: Multivitamin/Minerals Therapeutic Tablet PO SCH (08:59)
[2018-08-17] MEDS: Senna/Docusate Sodium 8.6/50 MG Tablet PO SCH ×2 (09:00→21:09)
[2018-08-17] MEDS: Nystatin/Diphenhydramine/Lidocaine Mouthwash (Adult) 120 ML Botttle SWISH-SWAL SCH ×4 (09:00→21:25)
[2018-08-17] MEDS: Lisinopril 20 MG Tablet PO SCH (09:00)
[2018-08-17] MEDS: Budesonide-Formoterol 160/4.5 MCG 6 GM Inhaler INH SCH ×2 (09:02→21:27)
[2018-08-17] MEDS: Carvedilol 6.25 MG Tablet PO SCH ×2 (09:08→21:26)
[2018-08-17] MEDS: guaiFENesin 600 MG ER Tablet PO SCH ×2 (09:11→21:26)
[2018-08-17] MEDS: Heparin - SQ 10,000 UNITS/ML Vial SQ SCH ×2 (09:12→21:27)
--- NOTE | 2018-08-17 09:20 | P.CONCA ---
History of Present Illness Primary Care Provider: UNKNOWN History of Present Illness: 63-year-old male with COPD, HTN who presented for shortness of breath and leg swelling. The patient states she has been having worsening shortness of breath and leg swelling for the past few weeks. Has not noticed any orthopnea, chest pain, palpitations, passing out. BNP 1400 at admission. Chest imaging at admission shows severe emphysema, no congestive failure changes. EKG and telemetry showed frequent PVCs. An echocardiogram was performed which showed an ejection fraction less than 20% which is new according to the patient and his . Echocardiogram also noted moderate severe MR and elevated pulmonary pressures 50s. He denies any prior history of heart disease or ischemic evaluation. He reports he stopped smoking last week. Review of Systems All other systems reviewed negative except as stated in [facility] - History History Provided By: Patient, Medical Record - Medical History Medical History: Medical History (Last Updated 08/15/18 @ 16:46 by Tania Leahy RN) Hypertension CHF (congestive heart failure) COPD (chronic obstructive pulmonary disease) - Surgical History Surgical History: Surgical History (Last Updated 08/15/18 @ 16:49 by Tania Leahy RN) Hx of knee surgery - Tobacco History Second Hand Smoke Exposure: No Tobacco Use In Past 30 Days: No Smoking Status: Former smoker Tobacco Type: Cigarettes - Alcohol History How Often Do You Have a Drink Containing Alcohol: 4 or more times a week - Substance Use History Substance History: No History of Abuse - Substance Use Type Marijuana Status: Active Route Used: By Mouth - Travel History Recent Travel in the [place] Within the Last 8 Weeks: No Recent Travel Out of the Country Within the Last 8 Weeks: No - Immunization History Tetanus Immunization: >5 Years Hx Influenza Vaccine This Season: No Medications and Allergies Active Medications: Active Medications Al Hydroxide/Mg Hydroxide (Milk Of [place] Liq) 30 ml PO Q12H PRN PRN Reason: Mild Constipation Albuterol (Duoneb Neb (Prn)) 1 ampul NEB Q2HR NEB PRN PRN Reason: SOB/WHEEZING Albuterol (Duoneb Neb (Sachin)) 1 ampul NEB Q4HR WHILE AWAKE NEB SACHIN Last Admin: 08/17/18 08:07 Dose: 1 ampul Aspirin (Ecotrin) 81 mg PO DAILY SACHIN Last Admin: 08/17/18 09:11 Dose: 81 mg Bisacodyl (Dulcolax Supp) 10 mg RECTAL DAILY PRN PRN Reason: SEVERE CONSITIPATION Budesonide/Formoterol Fumarate (Symbicort 160/4.5 Mcg Inh) 2 puff INH BID [facility] Last Admin: 08/17/18 09:02 Dose: 2 puff Carvedilol (Coreg) 6.25 mg PO BID [facility] Last Admin: 08/17/18 09:08 Dose: 6.25 mg Cyclobenzaprine HCl (Flexeril) 10 mg PO Q8H PRN PRN Reason: CRAMPS Flumazenil (Romazecon Inj) 0.2 mg IV.PUSH Q1M PRN PRN Reason: OVERSEDATION Fluoxetine HCl (Prozac) 20 mg PO DAILY [facility] Last Admin: 08/17/18 08:59 Dose: 20 mg Folic Acid (Folic Acid) 1 mg PO DAILY [facility] Stop: 08/21/18 08:59 Last Admin: 08/17/18 08:59 Dose: 1 mg Furosemide (Lasix Inj) 40 mg IV.PUSH BID@0900,1800 [facility] Guaifenesin (Mucinex Er) 600 mg PO BID [facility] Last Admin: 08/17/18 09:11 Dose: 600 mg Haloperidol Lactate (Haldol Inj) 1 mg IV.PUSH Q15M PRN PRN Reason: for severe agitation Heparin Sodium (Porcine) (Heparin Inj) 5,000 units SQ Q12H [facility] Last Admin: 08/17/18 09:12 Dose: 5,000 units Lactulose (Lactulose Liq) 30 ml PO DAILY PRN PRN Reason: SEVERE CONSITIPATION Lisinopril (Prinivil) 20 mg PO DAILY [facility] Last Admin: 08/17/18 09:00 Dose: 20 mg Lorazepam (Ativan) 1 mg PO Q4H PRN PRN Reason: for CIWA 8-10 Last Admin: 08/16/18 22:18 Dose: 1 mg Lorazepam (Ativan) 2 mg PO Q2H PRN PRN Reason: for CIWA 11-14 Last Admin: 08/16/18 01:03 Dose: 2 mg Lorazepam (Ativan Inj) 2 mg IV.PUSH Q2H PRN PRN Reason: for CIWA 11-14 Lorazepam (Ativan Inj) 2 mg IV.PUSH Q1H PRN PRN Reason: for CIWA 15-20 Lorazepam (Ativan Inj) 2 mg IV.PUSH Q15M PRN PRN Reason: for CIWA > 20 Lorazepam (Ativan Inj) 1 mg IV.PUSH Q4H PRN PRN Reason: for CIWA 8-10 Methylprednisolone Sodium Succinate (Solumedrol Inj) 40 mg IV.PUSH Q6H [facility] Last Admin: 08/17/18 09:13 Dose: 40 mg Multi-Ingredient Mouthwash/Gargle (Magic Mouthwash Adult Liq) 10 ml SWISH-SWAL QID [facility] Last Admin: 08/17/18 09:00 Dose: 10 ml Multivitamins/Minerals (Theragran-M) 1 tab PO DAILY [facility] Stop: 08/21/18 08:59 Last Admin: 08/17/18 08:59 Dose: 1 tab Nicotine (Habitrol 21 Mg Patch.24 Hr) 1 patch T-DERMAL DAILY [facility] Last Admin: 08/17/18 09:13 Dose: 1 patch Nystatin (Mycostatin Cream) 1 applicatio TOPICAL TID [facility] Last Admin: 08/17/18 09:02 Dose: 1 applicatio Ondansetron HCl (Zofran Inj) 4 mg IV.PUSH Q6H PRN PRN Reason: NAUSEA OR VOMITING Patch Removal (Remove Old Patch) 1 each T-DERMAL DAILY [facility] Last Admin: 08/16/18 09:16 Dose: 1 each Pravastatin Sodium (Pravachol) 40 mg PO DAILY [facility] Last Admin: 08/17/18 09:08 Dose: 40 mg Senna/Docusate Sodium (Klely-Colace) 1 tab PO BID [facility] Last Admin: 08/17/18 09:00 Dose: Not Given Sennosides (Senokot) 17.2 mg PO Q12H PRN PRN Reason: Moderate Constipation Sodium Chloride (Ns Flush) 2 ml IV.FLUSH BID [facility] Last Admin: 08/16/18 22:17 Dose: 2 ml Sodium Chloride (Ns Flush) 2 ml IV.FLUSH UNSCH PRN PRN Reason: FLUSH AFTER USING IV ACCESS Thiamine HCl (Vitamin B1) 100 mg PO DAILY [facility] Last Admin: 08/17/18 09:11 Dose: 100 mg Allergies Allergy/AdvReac Type Severity Reaction Status Date / Time acetaminophen Allergy Nasal Verified 08/15/18 16:48 Discharge Sulfa (Sulfonamide Allergy Swelling Verified 08/15/18 16:48 Antibiotics) Home Medications Medication Instructions Recorded Confirmed Type azithromycin 250 mg PO DAILY 08/15/18 08/15/18 History budesonide-formoterol [Symbicort] 2 puff INHALATION Q12H 08/15/18 08/15/18 History fluoxetine 20 mg PO DAILY 08/15/18 08/15/18 History ipratropium-albuterol [Combivent 1 puff INHALATION QID 08/15/18 08/15/18 History Respimat] lisinopril 20 mg PO DAILY 08/15/18 08/15/18 History meloxicam 7.5 mg PO DAILY 08/15/18 08/15/18 History nystatin 1 applic TOPICAL TID 08/15/18 08/15/18 History prednisone 50 mg PO BID 08/15/18 08/15/18 History Exam Vital signs: Vital Signs 08/16/18 11:35 08/16/18 11:36 08/16/18 12:00 Temperature 97.2 F L Pulse Rate 102 H 98 H 104 H Respiratory Rate 20 20 Blood Pressure 120/75 Pulse Oximetry 94 L 08/16/18 15:07 08/16/18 15:20 08/16/18 16:00 Temperature 96.1 F L Pulse Rate 100 H 101 H 108 H Respiratory Rate 16 20 Blood Pressure 129/66 Pulse Oximetry 93 L 08/16/18 19:25 08/17/18 00:00 08/17/18 04:00 Temperature 97.2 F L 96.7 F L Pulse Rate 59 L 96 H Respiratory Rate 18 17 Blood Pressure 121/69 125/77 Pulse Oximetry 97 94 L 96 08/17/18 07:35 08/17/18 08:12 Temperature 97.5 F L Pulse Rate 106 H 90 Respiratory Rate 20 17 Blood Pressure 135/78 Pulse Oximetry 96 97 Intake & Output 08/16/18 08/17/18 08/17/18 18:59 06:59 18:59 Intake Total 2154 / 2154 720 / 720 Output Total 3250 / 3250 600 / 600 Balance -1096 / -1096 120 / 120 Intake: Oral 2154 / 2154 720 / 720 Output: Urine 3250 / 3250 600 / 600 Other: # Voids 1 Narrative: GENERAL: Well-developed well-nourished. In no acute distress. NECK: No carotid bruits. No JVD. CARDIOVASCULAR: Regular rate and rhythm. No murmur appreciated. RESPIRATORY: No accessory muscle use. Clear to auscultation. Breath sounds equal bilaterally. MUSCULOSKELETAL: No clubbing or cyanosis. 1+ lower extremity edema. NEUROLOGICAL: Awake and alert. Normal speech. Results 08/16/18 04:45 08/16/18 04:45 Cardiac Enzymes 08/15/18 08/15/18 08/15/18 Range/Units 16:57 16:57 23:50 AST 54 H (15-37) U/L CK-MB (CK-2) 14.0 H (0.5-3.6) ng/mL Troponin I 0.05 0.03 (0.02-0.05) ng/mL B-Natriuretic Peptide 1387 H (0-100) pg/mL 08/16/18 Range/Units 04:45 AST 45 H (15-37) U/L CK-MB (CK-2) (0.5-3.6) ng/mL Troponin I (0.02-0.05) ng/mL B-Natriuretic Peptide (0-100) pg/mL Coagulation 08/15/18 08/15/18 08/15/18 Range/Units 16:57 16:57 16:57 PT 11.8 H Cancelled (9.8-11.6) sec APTT 25.7 Cancelled (23.4-31.7) sec B-Natriuretic Peptide 1387 H (0-100) pg/mL CBC 08/15/18 08/16/18 Range/Units 16:57 04:45 WBC 9.0 7.8 (4.0-11.0) th/mm3 RBC 3.94 L 3.90 L (4.50-5.90) mil/mm3 Hgb 15.5 14.9 (13.0-17.0) gm/dL Hct 43.6 42.7 (39.0-51.0) % Plt Count 162 144 L (150-450) th/mm3 Neut # (Auto) 8.2 H 7.1 (1.8-7.7) th/mm3 Lymph # (Auto) 0.5 L 0.4 L (1.0-4.8) th/mm3 [place] # (Auto) 0.4 0.2 (0.0-0.9) th/mm3 Eos # (Auto) 0.0 0.0 (0.0-0.4) th/mm3 Baso # (Auto) 0.0 0.0 (0.0-0.2) th/mm3 Comprehensive Metabolic Panel 08/15/18 08/16/18 Range/Units 16:57 04:45 Sodium 129 L 130 L (136-145) meq/L Potassium 5.3 H 4.8 (3.5-5.1) meq/L Chloride 94 L 95 L (98-107) meq/L Carbon Dioxide 24.7 28.2 (21.0-32.0) meq/L BUN 21 H 26 H (7-18) mg/dL Creatinine 1.45 H 1.47 H (0.60-1.30) mg/dL Calcium 8.1 L 8.4 L (8.5-10.1) mg/dL AST 54 H 45 H (15-37) U/L ALT 61 56 (12-78) U/L Alkaline Phosphatase 71 63 (45-117) U/L Total Protein 7.2 6.6 D (6.4-8.2) g/dL Albumin 3.7 3.5 (3.4-5.0) g/dL Intake and Output 08/16/18 08/17/18 08/17/18 22:59 06:59 14:59 Intake Total 1854 / 1854 720 / 720 Output Total 1350 / 1350 600 / 600 Balance 504 / 504 120 / 120 Intake: Oral 1854 / 1854 720 / 720 Output: Urine 1350 / 1350 600 / 600 - Imaging and Cardiology Imaging: Impressions Chest X-Ray 08/15/18 16:50 CONCLUSION: Negative examination. Chest CTA 08/15/18 17:29 CONCLUSION: 1. No pulmonary embolus or other acute cardiopulmonary disease demonstrated. 2. Moderate severity emphysema. 3. Nonspecific upper limits of normal to mildly enlarged mediastinal lymph nodes. 4. Coronary artery calcification. Assessment and Plan - Plan 63-year-old male with COPD, HTN who presented for shortness of breath and leg swelling Acute decompensated systolic CHF: Increase IV Lasix 40 mg to twice daily. Monitor I's and O's, electrolytes, and renal function. Severe cardiomyopathy: New onset. Ischemic workup with Lexiscan today. Already on lisinopril 20 mg for BP. Has been started on carvedilol 6.25 mg twice daily. Consider LifeVest at discharge. Discussed Condition With: Patient with and RN at bedside, Dr. Rodrigez
[2018-08-17 10:24] LABS: Calcium 8.5 mg/dL (8.5-10.1); Carbon Dioxide 28.8 meq/L (21.0-32.0)
[2018-08-17 10:25] LABS: Potassium 4.6 meq/L (3.5-5.1)
[2018-08-17] MEDS ORDERED: Regadenoson Inj 0.4 MG/5 ML Syringe IV.PUSH ONE (12:48)
--- NOTE | 2018-08-17 14:52 | NM ---
EXAM DATE: 08/17/2018 2:44 PM EST AGE/SEX: 63 years / Male INDICATIONS:Congestive heart failure. . Shortness of breath for one week. CLINICAL DATA: This is the patient's initial encounter. Patient reports that signs and symptoms have been present for 1 day and indicates a pain score of 0/10. MEDICAL/SURGICAL HISTORY: Chronic obstructive pulmonary disease. Hypertension. Total knee repl acement, left. COMPARISON: No prior exams available for comparison. No external comparison. DOSE: 8.8 mCi Tc 99m Myoview at rest 27.1 mCi [id number] at stress 0.4 mg Lexiscan STRESS SYMPTOMS: None. EJECTION FRACTION: 27 % TECHNIQUE: The patient underwent pharmacologic stress with infusion of prescribed dose. Continuous ECG tracing was monitored during stress. Gated SPECT imaging was performed after stress and conventi onal SPECT imaging was performed at rest. The examination was performed on a SPECT/CT scanner, both attenuation and non-corrected datasets were reviewed. FINDINGS: Distribution: The maximum perfused segment at stress is in the lateral wall. Perfusion Study: The pattern of perfusion at stress is within normal limits. Gated Study: There is global hypokinesis with a reduced ejection fraction at 27%. RISK CATEGORY: Low (<1% Annual Motality Rate) CONCLUSION: 1. No definite areas of ischemia are seen. 2. Global hypokinesis with a reduced ejection fraction 27%. Electronically signed by: Michael Joyce MD 08/17/2018 2:51 PM EST
--- NOTE | 2018-08-17 17:24 | P.PNIM ---
Subjective Interval history: Patient is seen in room today. He is anxious to go home but does want to finish evaluation by cardiology. Reports that breathing is better. He has been walking around unit with no chest pain. No nausea vomiting or diarrhea. No dizziness or syncope. Physical Exam Vital signs: Last Vital Signs Temp 96.1 F L 08/17/18 16:00 Pulse 93 H 08/17/18 16:00 Resp 20 08/17/18 16:00 BP 134/80 08/17/18 16:00 Pulse Ox 95 08/17/18 16:00 Intake & Output 08/15/18 08/16/18 08/17/18 08/18/18 06:59 06:59 06:59 06:59 Intake Total 2874 / 2874 666 / 666 Output Total 1850 / 1850 3850 / 3850 700 / 700 Balance -1850 / -1850 -976 / -976 -34 / -34 Weight 89.5 kg Narrative: arrative: GENERAL: Well-developed, well-nourished male in no acute distress. SKIN: Focused skin assessment warm and dry. Facial erythema HEENT: PERRLA, EOMI. No scleral icterus or conjunctival pallor. No lid lag or facial droop. +thrush. CARDIOVASCULAR: Regular rate and rhythm. No obvious murmurs to auscultation. No chest tenderness to palpation. RESPIRATORY: No obvious rhonchi. + Slight wheezing. Breath sounds equal bilaterally. GASTROINTESTINAL: Abdomen soft, non-tender, nondistended. BS normal. MUSCULOSKELETAL: Extremities without clubbing, cyanosis. Mild bilateral ankle edema. No obvious deformities. NEUROLOGICAL: Awake, alert and oriented x4. No focal neurologic deficits. Moving both upper and lower extremities spontaneously. PSYCHIATRIC: Appropriate mood and affect. Insight and judgment normal Results Labs CBC & Chem 7: 08/16/18 04:45 08/17/18 08:55 Imaging Imaging: Impressions Myocardial Perfusion Scan Nuc Med 08/17/18 00:00 CONCLUSION: 1. No definite areas of ischemia are seen. 2. Global hypokinesis with a reduced ejection fraction 27%. Assessment and Plan (1) COPD (chronic obstructive pulmonary disease): Code(s): J44.9 - Chronic obstructive pulmonary disease, unspecified Status: Acute (2) CHF (congestive heart failure): Code(s): I50.9 - Heart failure, unspecified Status: Acute (3) CHUY (acute kidney injury): Code(s): N17.9 - Acute kidney failure, unspecified Status: Acute (4) Alcohol abuse: Code(s): F10.10 - Alcohol abuse, uncomplicated Status: Acute (5) Tobacco abuse: Code(s): Z72.0 - Tobacco use Status: Acute Plan Patient is a 63-year-old male past medical history of COPD who presents to the emergency room due to worsening shortness of breath and leg swelling. Shortness of breath has been for +1-month and lower extremity edema for +1-week. He went to [facility] next morning on Saturday where EKG and chest x-ray done but no lab work. He was discharged with prednisone and azithromycin. He had no improvement on these medications so he came to [place]. COPD: Chronic Respiratory Failure w/ Acute Exacerbation, +wheezing on exam, CXR w/ no acute findings, CTA Chest w/ no PE, +emphysema -Solu-Medrol, DuoNeb, Symbicort, Mucinex -Nystatin S&S for thrush CHF: New Onset. Acute. progressive lower extremity edema, BNP 1387, CXR/CTA w / no effusion, +significant dyspnea w/ speech/exertion. -S/p Lasix 40mg IV in ER, continue w/ diuresis-caution w/ renal function, -Monitor I/O, telemetry -Echo indicated EF <20%. Initial trop 0.05, repeat 0.03 - Add ASA, Statin and Coreg -Consult to cardiology; appreciate assistance -stress test today Hypertension: chronic -Continue home lisinopril, monitor renal function and stop if GFR less than 30 CHUY: Creatinine 1.45, no previous labs for comparison, presumably new, likely due to increased respiratory losses from severe dyspnea -monitor I/O, may need gentle hydration despite acute CHF if renal function worsens. Alcohol Abuse: drinks 6-8 beers/day -CIWA, Seizure Precautions, MVT/Thiamine/Folate replacement. Hyponatremia: -Likely chronic due to EtOH abuse -Monitor and supplement as indicated Tobacco Abuse: -Pt counselled. Requesting NicoDerm patch. DVT Prophylaxis: Heparin sq Discharge planning: Likely home. Patient follows at [facility] Progress Note: Quality VTE Deep Vein Thrombosis/Pulmonary Embolism Present on Admission: No _ (1) COPD (chronic obstructive pulmonary disease) Qualifiers: COPD type: Chronic bronchitis type: Emphysema type: (2) CHF (congestive heart failure) Qualifiers: Heart failure type: Heart failure chronicity:
[2018-08-17] MEDS: LORazepam 1 MG Tablet PO PRN (21:33)
[2018-08-18] MEDS: MethylPREDNISolone Sod Succinate Inj 40 MG/ML Vial IV.PUSH SCH ×3 (02:43→14:42)
[2018-08-18 05:28] LABS: Calcium 8.2 mg/dL (8.5-10.1); Carbon Dioxide 29.2 meq/L (21.0-32.0); Potassium 4.2 meq/L (3.5-5.1)
[2018-08-18] MEDS: Nystatin/Diphenhydramine/Lidocaine Mouthwash (Adult) 120 ML Botttle SWISH-SWAL SCH ×2 (08:14→14:42)
--- NOTE | 2018-08-18 08:14 | P.PNCA ---
Subjective Interval history: Breathing better. -1999 fluid balance. Still with some coughing and wheezing. Medications and Allergies Active Medications: Active Medications Al Hydroxide/Mg Hydroxide (Milk Of Magnesia Liq) 30 ml PO Q12H PRN PRN Reason: Mild Constipation Albuterol (Duoneb Neb (Prn)) 1 ampul NEB Q2HR NEB PRN PRN Reason: SOB/WHEEZING Albuterol (Duoneb Neb (Sachin)) 1 ampul NEB Q4HR WHILE AWAKE NEB [facility] Last Admin: 08/18/18 07:25 Dose: 1 ampul Aspirin (Ecotrin) 81 mg PO DAILY [facility] Last Admin: 08/17/18 09:11 Dose: 81 mg Bisacodyl (Dulcolax Supp) 10 mg RECTAL DAILY PRN PRN Reason: SEVERE CONSITIPATION Budesonide/Formoterol Fumarate (Symbicort 160/4.5 Mcg Inh) 2 puff INH BID [facility] Last Admin: 08/17/18 21:27 Dose: 2 puff Carvedilol (Coreg) 6.25 mg PO BID [facility] Last Admin: 08/17/18 21:26 Dose: 6.25 mg Cyclobenzaprine HCl (Flexeril) 10 mg PO Q8H PRN PRN Reason: CRAMPS Flumazenil (Romazecon Inj) 0.2 mg IV.PUSH Q1M PRN PRN Reason: OVERSEDATION Fluoxetine HCl (Prozac) 20 mg PO DAILY [facility] Last Admin: 08/17/18 08:59 Dose: 20 mg Folic Acid (Folic Acid) 1 mg PO DAILY [facility] Stop: 08/21/18 08:59 Last Admin: 08/17/18 08:59 Dose: 1 mg Furosemide (Lasix Inj) 40 mg IV.PUSH BID@0900,1800 [facility] Last Admin: 08/17/18 18:40 Dose: 40 mg Guaifenesin (Mucinex Er) 600 mg PO BID [facility] Last Admin: 08/17/18 21:26 Dose: 600 mg Haloperidol Lactate (Haldol Inj) 1 mg IV.PUSH Q15M PRN PRN Reason: for severe agitation Heparin Sodium (Porcine) (Heparin Inj) 5,000 units SQ Q12H [facility] Last Admin: 08/17/18 21:27 Dose: 5,000 units Lactulose (Lactulose Liq) 30 ml PO DAILY PRN PRN Reason: SEVERE CONSITIPATION Lisinopril (Prinivil) 20 mg PO DAILY [facility] Last Admin: 08/17/18 09:00 Dose: 20 mg Lorazepam (Ativan) 1 mg PO Q4H PRN PRN Reason: for CIWA 8-10 Last Admin: 08/17/18 21:33 Dose: 1 mg Lorazepam (Ativan) 2 mg PO Q2H PRN PRN Reason: for CIWA 11-14 Last Admin: 08/16/18 01:03 Dose: 2 mg Lorazepam (Ativan Inj) 2 mg IV.PUSH Q2H PRN PRN Reason: for CIWA 11-14 Lorazepam (Ativan Inj) 2 mg IV.PUSH Q1H PRN PRN Reason: for CIWA 15-20 Lorazepam (Ativan Inj) 2 mg IV.PUSH Q15M PRN PRN Reason: for CIWA > 20 Lorazepam (Ativan Inj) 1 mg IV.PUSH Q4H PRN PRN Reason: for CIWA 8-10 Methylprednisolone Sodium Succinate (Solumedrol Inj) 40 mg IV.PUSH Q6H [facility] Last Admin: 08/18/18 02:43 Dose: 40 mg Multi-Ingredient Mouthwash/Gargle (Magic Mouthwash Adult Liq) 10 ml SWISH-SWAL QID [facility] Last Admin: 08/17/18 21:25 Dose: 10 ml Multivitamins/Minerals (Theragran-M) 1 tab PO DAILY [facility] Stop: 08/21/18 08:59 Last Admin: 08/17/18 08:59 Dose: 1 tab Nicotine (Habitrol 21 Mg Patch.24 Hr) 1 patch T-DERMAL DAILY [facility] Last Admin: 08/17/18 09:13 Dose: 1 patch Nystatin (Mycostatin Cream) 1 applicatio TOPICAL TID [facility] Last Admin: 08/17/18 18:45 Dose: 1 applicatio Ondansetron HCl (Zofran Inj) 4 mg IV.PUSH Q6H PRN PRN Reason: NAUSEA OR VOMITING Patch Removal (Remove Old Patch) 1 each T-DERMAL DAILY [facility] Last Admin: 08/17/18 09:44 Dose: 1 each Pravastatin Sodium (Pravachol) 40 mg PO DAILY [facility] Last Admin: 08/17/18 09:08 Dose: 40 mg Senna/Docusate Sodium (Kelly-Colace) 1 tab PO BID [facility] Last Admin: 08/17/18 21:09 Dose: Not Given Sennosides (Senokot) 17.2 mg PO Q12H PRN PRN Reason: Moderate Constipation Sodium Chloride (Ns Flush) 2 ml IV.FLUSH BID [facility] Last Admin: 08/17/18 21:27 Dose: 2 ml Sodium Chloride (Ns Flush) 2 ml IV.FLUSH UNSCH PRN PRN Reason: FLUSH AFTER USING IV ACCESS Thiamine HCl (Vitamin B1) 100 mg PO DAILY [facility] Last Admin: 08/17/18 09:11 Dose: 100 mg Allergies Allergy/AdvReac Type Severity Reaction Status Date / Time acetaminophen Allergy Nasal Verified 08/15/18 16:48 Discharge Sulfa (Sulfonamide Allergy Swelling Verified 08/15/18 16:48 Antibiotics) Home Medications Medication Instructions Recorded Confirmed Type azithromycin 250 mg PO DAILY 08/15/18 08/15/18 History budesonide-formoterol [Symbicort] 2 puff INHALATION Q12H 08/15/18 08/15/18 History fluoxetine 20 mg PO DAILY 08/15/18 08/15/18 History ipratropium-albuterol [Combivent 1 puff INHALATION QID 08/15/18 08/15/18 History Respimat] lisinopril 20 mg PO DAILY 08/15/18 08/15/18 History meloxicam 7.5 mg PO DAILY 08/15/18 08/15/18 History nystatin 1 applic TOPICAL TID 08/15/18 08/15/18 History prednisone 50 mg PO BID 08/15/18 08/15/18 History Physical Exam Vital signs: Vital Signs 08/17/18 08:12 08/17/18 11:00 08/17/18 11:20 Temperature 95.7 F L Pulse Rate 90 92 H 93 H Respiratory Rate 17 20 Blood Pressure 119/82 Pulse Oximetry 97 95 08/17/18 11:50 08/17/18 16:00 08/17/18 19:20 Temperature 96.1 F L Pulse Rate 93 H 93 H 103 H Respiratory Rate 17 20 17 Blood Pressure 134/80 Pulse Oximetry 95 99 08/17/18 20:00 08/17/18 20:30 08/18/18 00:00 Temperature 96.6 F L 96.8 F L Pulse Rate 106 H 97 H 89 Respiratory Rate 17 16 Blood Pressure 143/69 H 117/71 Pulse Oximetry 94 L 97 08/18/18 04:00 08/18/18 07:30 Temperature 96.2 F L Pulse Rate 84 84 Respiratory Rate 17 17 Blood Pressure 111/72 Pulse Oximetry 95 96 Intake & Output 08/17/18 08/18/18 08/18/18 18:59 06:59 18:59 Intake Total 666 / 666 300 / 300 Output Total 700 / 700 2350 / 2350 Balance -34 / -34 -2049 Intake: Oral 666 / 666 300 / 300 Output: Urine 700 / 700 2350 / 2350 Other: Date of Last Bowel Movement 08/17/18 Narrative: GENERAL: Well-developed well-nourished. In no acute distress. NECK: No carotid bruits. No JVD. CARDIOVASCULAR: Regular rate and rhythm. No murmur appreciated. RESPIRATORY: Wheezing noted. MUSCULOSKELETAL: No clubbing or cyanosis. No edema. NEUROLOGICAL: Awake and alert. Normal speech. Results 08/16/18 04:45 08/18/18 04:41 Comprehensive Metabolic Panel 08/17/18 08/18/18 Range/Units 08:55 04:41 Sodium 131 L 132 L (136-145) meq/L Potassium 4.6 4.2 (3.5-5.1) meq/L Chloride 94 L 94 L (98-107) meq/L Carbon Dioxide 28.8 29.2 (21.0-32.0) meq/L BUN 22 H 29 H (7-18) mg/dL Creatinine 1.47 H 1.36 H (0.60-1.30) mg/dL Calcium 8.5 8.2 L (8.5-10.1) mg/dL Intake and Output 08/17/18 08/18/18 08/18/18 22:59 06:59 14:59 Intake Total 666 / 666 300 / 300 Output Total 700 / 700 2350 / 2350 Balance -34 / -34 -2049 Intake: Oral 666 / 666 300 / 300 Output: Urine 700 / 700 2350 / 2350 Other: Date of Last Bowel Movement 08/17/18 - Imaging and Cardiology Imaging: Impressions Myocardial Perfusion Scan Nuc Med 08/17/18 00:00 CONCLUSION: 1. No definite areas of ischemia are seen. 2. Global hypokinesis with a reduced ejection fraction 27%. Assessment and Plan - Plan 63-year-old male with COPD, HTN who presented for shortness of breath and leg swelling Acute decompensated systolic CHF: On IV Lasix 40 mg twice daily, convert to oral Lasix at DC. Severe cardiomyopathy: New onset. Lexiscan with no ischemia. Continue lisinopril 20 mg daily and carvedilol 6.25 mg twice daily. Repeat echo in 2-3 months of GDMT. [facility] Recommend LifeVest at discharge, ordered, case management consulted. Discussed Condition With: Patient with at bedside seen with Dr. Rodrigez
[2018-08-18] MEDS: Budesonide-Formoterol 160/4.5 MCG 6 GM Inhaler INH SCH (08:19)
[2018-08-18] MEDS: Folic Acid 1 MG Tablet PO SCH (08:19)
[2018-08-18] MEDS: Multivitamin/Minerals Therapeutic Tablet PO SCH (08:19)
[2018-08-18] MEDS: Lisinopril 20 MG Tablet PO SCH (08:20)
[2018-08-18] MEDS: guaiFENesin 600 MG ER Tablet PO SCH (08:21)
[2018-08-18] MEDS: Senna/Docusate Sodium 8.6/50 MG Tablet PO SCH (08:21)
[2018-08-18] MEDS: Carvedilol 6.25 MG Tablet PO SCH (08:22)
[2018-08-18] MEDS: FLUoxetine 20 MG Capsule PO SCH (08:22)
[2018-08-18] MEDS: Heparin - SQ 10,000 UNITS/ML Vial SQ SCH (08:24)
--- NOTE | 2018-08-18 09:09 | P.DS ---
Date of admission: 08/15/18 19:34 Primary care physician: UNKNOWN Attending physician on discharge: Troy Gill Anticipated date of discharge: 08/18/18 Brief History from admission: This is a 63-year-old male with a PMH of HTN, COPD, Alcohol Abuse and Tobacco Abuse who was referred to the ER by his PCP for evaluation of ongoing SOB and lower extremity edema. Pt reports SOB x1 month, however progressively worse over the last 2-3 days, now w/ exertion, unable to perform minimal activity. Denies chest pain, fever or chills. Seen at [facility] 2 days ago and was d/ c'd on Prednisone/Z-pack, reports no improvement. Has been using MDI, now c/o thrush for which he's on Nystatin. On arrival, BP 168/88, HR 56, O2 sat 98% on RA, Afebrile. CBC unremarkable except for MCV 110. INR 1.2. D-dimer 0.81. K + 5.3. Creatinine 1.45, no previous labs for comparison. CPK 378. BNP 1387. CXR negative. CTA Chest negative for PE, moderate severity emphysema, coronary artery calcification, mildly enlarged mediastinal lymph nodes. S/p Lasix 40mg IV and DuoNeb w/ some improvement. Patient update on day of discharge: The patient reports feeling better again today. He states his shortness of breath and lower extremity edema have significantly improved since arrival. He has been ambulating the unit without difficulty. Denies any chest pain. He feels ready for discharge. He is awaiting arrangements of his LifeVest prior to discharge. DS: Diagnosis - Discharge Diagnosis (1) COPD (chronic obstructive pulmonary disease) Status: Acute (2) CHF (congestive heart failure) Status: Acute DS: Medications - Discharge Medications Prescriptions: albuterol sulfate [Ventolin HFA] 1 puff INHALATION Q4-6H PRN #1 inhaler PRN Reason: SOB/Wheezing aspirin 81 mg PO DAILY #30 tab carvedilol [Coreg] 6.25 mg PO BID #60 tab fluoxetine 20 mg PO DAILY #30 cap furosemide [Lasix] 40 mg PO DAILY #30 tab ipratropium-albuterol 1 amp NEB Q4HR WHILE AWAKE NEB #360 ml lisinopril 20 mg PO DAILY #30 tab pravastatin 40 mg PO HS #30 tab prednisone [Deltasone] 20 mg PO BID #10 tab DS: Summary Hospital Course: Patient is a 63-year-old male past medical history of COPD who presents to the emergency room due to worsening shortness of breath and leg swelling. Shortness of breath has been for +1-month and lower extremity edema for +1-week. He went to [facility] next morning on Saturday where EKG and chest x-ray done but no lab work. He was discharged with prednisone and azithromycin. He had no improvement on these medications so he came to [place]. COPD: Chronic Respiratory Failure w/ Acute Exacerbation, +wheezing on exam, CXR w/ no acute findings, CTA Chest w/ no PE, +emphysema. Given IV Solu-Medrol, DuoNeb, Symbicort, Mucinex. Patient much improved, no further wheezing, ambulating without difficulty. Ordered nebulizer machine at discharge, case management to assist. CHF: New Onset. Acute. Patient with increasing lower extremity edema, BNP 1387 , CXR/CTA w/ no effusion, +significant dyspnea w/ speech/exertion. S/p Lasix 40mg IV in ER, continue w/IV Lasix 40mg bid-caution w/ renal function. Monitor I /O, telemetry. Echo indicated EF <20%. Initial trop 0.05, repeat 0.03, no complaints of chest pain. Added ASA, Statin and Coreg, continued lisinopril. Consult to cardiology. Lexiscan negative for ischemia, shows EF 27%. Cardiology ordered LifeVest to be arranged prior to discharge, then cleared for discharge home. Patient's symptoms much improved, O2 sat stable on room air, ambulating without difficulty. CHF education provided to patient and . Outpatient f/up with cardiology. Hypertension: chronic. Continued home lisinopril. BP stable. CHUY: Creatinine 1.45, no previous labs for comparison, presumably new, likely due to increased respiratory losses from severe dyspnea. Monitor I/O. Renal function slightly improved with Cr 1.3 at discharge. Stable. Outpatient f/up with PCP. Alcohol Abuse: drinks 6-8 beers/day. CIWA, Seizure Precautions, MVT/Thiamine/ Folate replacement. Counseled on cessation. Hyponatremia: Likely chronic due to EtOH abuse. Tobacco Abuse: Pt counselled on cessation. - Time Spent with Patient Total time spent providing and/or coordinating discharge services: Greater than 30 minutes - Quality: VTE Deep Vein Thrombosis/Pulmonary Embolism Present on Admission: No Exam Vital signs: Vital Signs 08/17/18 11:00 08/17/18 11:20 08/17/18 11:50 Temperature 95.7 F L Pulse Rate 92 H 93 H 93 H Respiratory Rate 20 17 Blood Pressure 119/82 Pulse Oximetry 95 08/17/18 16:00 08/17/18 19:20 08/17/18 20:00 Temperature 96.1 F L 96.6 F L Pulse Rate 93 H 103 H 106 H Respiratory Rate 20 17 17 Blood Pressure 134/80 143/69 H Pulse Oximetry 95 99 94 L 08/17/18 20:30 08/18/18 00:00 08/18/18 04:00 Temperature 96.8 F L 96.2 F L Pulse Rate 97 H 89 84 Respiratory Rate 16 17 Blood Pressure 117/71 111/72 Pulse Oximetry 97 95 08/18/18 07:30 Temperature Pulse Rate 84 Respiratory Rate 17 Blood Pressure Pulse Oximetry 96 Intake & Output 08/17/18 08/18/18 08/18/18 18:59 06:59 18:59 Intake Total 666 / 666 300 / 300 Output Total 700 / 700 2350 / 2350 Balance -34 / -34 -2049 / -2049 Intake: Oral 666 / 666 300 / 300 Output: Urine 700 / 700 2350 / 2350 Other: Date of Last Bowel Movement 08/17/18 Narrative: GENERAL: Well-nourished, well-developed middle aged male patient in [facility]. SKIN: Warm and dry. No rash. HEENT: Normocephalic. Atraumatic. Pupils equal and round. Mucous membranes pink and moist. CARDIOVASCULAR: Regular rate and rhythm. No murmur appreciated. RESPIRATORY: No accessory muscle use. Clear to auscultation. Breath sounds equal bilaterally. GASTROINTESTINAL: Abdomen soft, non-tender, nondistended. Normoactive bowel sounds x4. MUSCULOSKELETAL: No obvious deformities. Trace bilateral anterior tibial pitting edema. NEUROLOGICAL: Awake and alert. No obvious cranial nerve deficits. Moving all extremities spontaneously. Normal speech. PSYCHIATRIC: Appropriate mood and affect; insight and judgment normal. Results Procedures completed during hospitalization: None. Labs on day of discharge: Labs from last 24 hours 08/18/18 08/18/18 08/18/18 08:16 04:41 04:41 Sodium 132 L Potassium 4.2 Chloride 94 L Carbon Dioxide 29.2 Anion Gap 9 BUN 29 H Creatinine 1.36 H Estimated GFR 53 L POC Glucose 191 H Random Glucose 150 H Calcium 8.2 L Triglycerides Pending Cholesterol Pending LDL Cholesterol, Calc Pending HDL Cholesterol Pending Cholesterol/HDL Ratio Pending 08/17/18 08/17/18 21:05 08:55 Sodium 131 L Potassium 4.6 Chloride 94 L Carbon Dioxide 28.8 Anion Gap 8 BUN 22 H Creatinine 1.47 H Estimated GFR 49 L POC Glucose 173 H Random Glucose 177 H Calcium 8.5 Triglycerides Cholesterol LDL Cholesterol, Calc HDL Cholesterol Cholesterol/HDL Ratio - Impressions ITS Impressions Chest X-Ray 08/15/18 16:50 CONCLUSION: Negative examination. Chest CTA 08/15/18 17:29 CONCLUSION: 1. No pulmonary embolus or other acute cardiopulmonary disease demonstrated. 2. Moderate severity emphysema. 3. Nonspecific upper limits of normal to mildly enlarged mediastinal lymph nodes. 4. Coronary artery calcification. Myocardial Perfusion Scan Nuc Med 08/17/18 00:00 CONCLUSION: 1. No definite areas of ischemia are seen. 2. Global hypokinesis with a reduced ejection fraction 27%. Discharge Plan - Discharge Disposition Patient Disposition: 01 Discharge Home - Discharge Condition Condition: Stable - Discharge Order Discharge Orders: Discharge Order (Routine); Ordered 08/18/18 Ordered By: Nida Carpio Cardiology Clear for Discharge (Routine); Ordered 08/18/18 Ordered By: Yony Rodrigez - Discharge Details Anticipated Discharge Date: 08/18/18 Discharge Comment: Ok to discharge when nebulizer and life vest arranged by case management. - Physicians Team Primary Care Provider: UNKNOWN, Attending Provider: Troy Gill Other Providers: Yony Rodrigez MD
[2018-08-18 09:28] LABS: Chol/HDL Ratio 2.04 Ratio
== END 2018-08-18 17:54 | disposition home or self-care (01) ==
LOC: NEPC 15:16 → NEDA 15:16 → NEPHCDU 20:50
PROVIDERS: ADMIT Hospitalist; ATTEND Hospitalist